=== PATIENT | female | born 2000 | race Caucasian/White ===

== ENCOUNTER 2019-05-16 20:47 | Emergency (ER) | payer BC ==
[~2019-05-16] VITALS: Ht 162.6 cm; Wt 63.5 kg
[~2019-05-16 20:47] MED LIST: AZIT200SU; RXPROCODSY
[2019-05-16] MEDS ORDERED: DULO60 PO (21:27)
== END 2019-05-16 21:28 | disposition home or self-care (01) ==
LOC: ER 20:47
DX: N92.0 Excessive and frequent menstruation with regular cycle (principal)
CPT/HCPCS: 99283

== ENCOUNTER 2019-12-06 20:18 | Emergency (ER) | payer BC ==
[~2019-12-06] VITALS: Ht 162.6 cm; Wt 68.0 kg
[~2019-12-06 20:18] MED LIST changes: +DULO60 PO
[2019-12-06 21:35] LABS: BASOPHILS ABSOLUTE AUTO 0.06 K/mm3 (0.00-0.23); BASOPHILS PERCENT AUTO 1 % (0-2); EOSINOPHILS ABSOLUTE AUTO 0.06 K/mm3 (0.00-0.68); EOSINOPHILS PERCENT AUTO 1 % (0-6); Hematocrit 41.6 % (33.0-51.0); Hemoglobin 14.2 g/dL (11.5-16.0); IMMATURE GRAN ABSOLUTE AUTO 0.02 K/mm3 (0.00-0.10); IMMATURE GRAN PERCENT AUTO 0 % (0-1); LYMPHOCYTES ABSOLUTE AUTO 1.41 K/mm3 (0.84-5.20); LYMPHOCYTES PERCENT AUTO 13 % (21-46); MONOCYTES ABSOLUTE AUTO 0.56 K/mm3 (0.16-1.47); MONOCYTES PERCENT AUTO 5 % (4-13); Mean Corpuscular HGB 30.9 pg (26.0-34.0); Mean Corpuscular HGB Conc 34.1 g/dL (31.5-36.5); Mean Corpuscular Volume 91 fL (80-100); Mean Platelet Volume 10.2 fL (9.1-12.4); NEUTROPHILS ABSOLUTE AUTO 8.85 K/mm3 (1.96-9.15); NEUTROPHILS PERCENT AUTO 81 % (41-73); Platelet Count 308 K/mm3 (150-400); RDW Coefficient Variation 12.2 % (11.7-14.2); RDW Standard Deviation 40.3 fL (35.1-46.3); Red Blood Cell Count 4.59 M/mm3 (3.80-5.20); White Blood Cell Count 10.96 K/mm3 (4.00-11.30)
[2019-12-06 21:39] LABS: Source, Urine Clean Catch
[2019-12-06 21:48] LABS: Appearance, Urine Clear (Clear); Bilirubin, Urine Neg (Neg); Blood, Urine 1+ (Neg); Color, Urine Amber (P-Yellow); Glucose Qualitative, Urine Neg (Neg); Ketones, Urine 1+ (Neg); Leukocyte Esterase, Urine 1+ (Neg); Nitrite, Urine Neg (Neg); Protein, Urine 1+ (Neg); Specific Gravity, Urine 1.025 (1.003-1.022); Urobilinogen, Urine NORM (Normal)
[2019-12-06 21:52] LABS: Alanine Aminotransfer (ALT/SGP 19 U/L (12-78); Albumin, Blood 3.6 g/dL (3.4-5.0); Albumin/Globulin Ratio 0.9 (0.8-1.8); Alk Phos 91 U/L (50-136); Anion Gap 9 mmol/L (6-16); Aspartate Aminotrans (AST/SGOT 20 U/L (12-37); Bilirubin, Total 0.4 mg/dL (0.1-1.0); Blood Urea Nitrogen 10 mg/dL (8-24); Bun/Creatinine Ratio 13.6 (12.0-20.0); CO2, Blood 22 mmol/L (21-32); Calcium, Blood 8.8 mg/dL (8.5-10.1); Chloride, Blood 106 mmol/L (98-108); Creatinine, Blood 0.74 mg/dL (0.40-1.00); Globulin, Blood 4.2 g/dL (2.2-4.0); Glomerular Filtration Rate >60 (60-); Glucose, Blood 93 mg/dL (70-99); Potassium, Blood 3.5 mmol/L (3.5-5.5); Sodium, Blood 137 mmol/L (136-145); Total Protein, Blood 7.8 g/dL (6.4-8.2)
[2019-12-06 21:58] LABS: Bacteria Many /hpf; Mucus Light (0-Heavy); Red Blood Cells, Urine 0-2 /hpf (0-2); Squamous Epithelial Cells Few /hpf (Few)
[2019-12-07] MEDS ORDERED: ONDA4ODT MM (01:10)
== END 2019-12-07 01:26 | disposition home or self-care (01) ==
LOC: ER 20:18
PROVIDERS: Physician Assistant
DX: N20.0 Calculus of kidney (principal); K52.9 Noninfective gastroenteritis and colitis, unspecified; F41.9 Anxiety disorder, unspecified; F32.9 Major depressive disorder, single episode, unspecified
CPT/HCPCS: 36415; 74176; 76705; 80053; 81001; 81025; 83690; 85025; 87086; 96361; 96374; 99284-25; A9270; A9270-GY; J2405; J7030

== ENCOUNTER 2020-05-02 16:28 | Emergency (ER) | payer OTHER, BC ==
[~2020-05-02] VITALS: Ht 162.6 cm; Wt 68.0 kg
[~2020-05-02 16:28] MED LIST changes: +ONDA4ODT MM
[2020-05-02] MEDS ORDERED: DULOXETINE HCL60 M1 PO (16:36)
[2020-05-02] MEDS ORDERED: TRAM50 PO (16:36)
[2020-05-02] MEDS ORDERED: HYDR1TAB94 PO (18:20)
[2020-05-02] MEDS ORDERED: IBU800 MG PO (18:20)
== END 2020-05-02 18:43 | disposition home or self-care (01) ==
LOC: ER 16:28
DX: S09.90XA Unspecified injury of head, initial encounter (principal); S70.01XA Contusion of right hip, initial encounter; S93.401A Sprain of unspecified ligament of right ankle, initial encounter; V56.6XXA Passenger in pick-up truck or van injured in collision with other nonmotor vehicle in traffic accident, initial encounter; Y92.410 Unspecified street and highway as the place of occurrence of the external cause
CPT/HCPCS: 70450; 73502; 73610; 96374; 99285-25; A9270; A9270-GY; J3010

== ENCOUNTER → 2020-07-31 | Outpatient (CLI) | payer BC ==
[~2020-07-31] MED LIST changes: +DULOXETINE HCL60 M1 PO; +HYDR1TAB94 PO; +IBU800 MG PO; +TRAM50 PO
[2020-07-31 10:30] LABS: BASOPHILS ABSOLUTE AUTO 0.06 K/mm3 (0.00-0.23); BASOPHILS PERCENT AUTO 1 % (0-2); EOSINOPHILS ABSOLUTE AUTO 0.08 K/mm3 (0.00-0.68); EOSINOPHILS PERCENT AUTO 2 % (0-6); Hematocrit 41.5 % (33.0-51.0); Hemoglobin 13.8 g/dL (11.5-16.0); IMMATURE GRAN ABSOLUTE AUTO 0.01 K/mm3 (0.00-0.10); IMMATURE GRAN PERCENT AUTO 0 % (0-1); LYMPHOCYTES ABSOLUTE AUTO 1.72 K/mm3 (0.84-5.20); LYMPHOCYTES PERCENT AUTO 35 % (21-46); MONOCYTES ABSOLUTE AUTO 0.33 K/mm3 (0.16-1.47); MONOCYTES PERCENT AUTO 7 % (4-13); Mean Corpuscular HGB 31.4 pg (26.0-34.0); Mean Corpuscular HGB Conc 33.3 g/dL (31.5-36.5); Mean Corpuscular Volume 94 fL (80-100); Mean Platelet Volume 10.4 fL (9.1-12.4); NEUTROPHILS ABSOLUTE AUTO 2.79 K/mm3 (1.96-9.15); NEUTROPHILS PERCENT AUTO 56 % (41-73); Platelet Count 314 K/mm3 (150-400); RDW Coefficient Variation 11.8 % (11.7-14.2); RDW Standard Deviation 41.2 fL (35.1-46.3); White Blood Cell Count 4.99 K/mm3 (4.00-11.30)
[2020-07-31 10:55] LABS: Alanine Aminotransfer (ALT/SGP 25 U/L (12-78); Albumin, Blood 3.9 g/dL (3.4-5.0); Albumin/Globulin Ratio 1.1 (0.8-1.8); Alk Phos 99 U/L (50-136); Anion Gap 6 mmol/L (6-16); Aspartate Aminotrans (AST/SGOT 22 U/L (12-37); Bilirubin, Total 0.4 mg/dL (0.1-1.0); Blood Urea Nitrogen 7 mg/dL (8-24); Bun/Creatinine Ratio 9.6 (12.0-20.0); CO2, Blood 27 mmol/L (21-32); Calcium, Blood 9.4 mg/dL (8.5-10.1); Chloride, Blood 110 mmol/L (98-108); Creatinine, Blood 0.73 mg/dL (0.40-1.00); Globulin, Blood 3.7 g/dL (2.2-4.0); Glomerular Filtration Rate >60 (60-); Glucose, Blood 80 mg/dL (70-99); Potassium, Blood 3.6 mmol/L (3.5-5.5); Sodium, Blood 143 mmol/L (136-145); Total Protein, Blood 7.6 g/dL (6.4-8.2)
== END | disposition home or self-care (01) ==
LOC: LAB SHORT 10:23 → LAB 10:23
PROVIDERS: Nurse Practitioner Family
DX: R10.9 Unspecified abdominal pain (principal)
CPT/HCPCS: 80053; 83690; 85025

== ENCOUNTER → 2020-08-05 | Outpatient (CLI) | payer BC ==
[2020-08-07 17:43] LABS: CORONAVIRUS (COVID19) CSH-NRL Negative (Negative)
== END | disposition home or self-care (01) ==
LOC: LAB SHORT 12:52 → OLS 12:52 → LAB 12:52
PROVIDERS: Physician Assistant
DX: R05 Cough (principal); Z20.828 Contact with and (suspected) exposure to other viral communicable diseases
CPT/HCPCS: U0003

== ENCOUNTER → 2024-11-11 | Outpatient (CLI) | payer BC, OTHER | LOC: LAB SHORT 13:43 → LAB 13:43 | DX: O09.93 Supervision of high risk pregnancy, unspecified, third trimester (principal) | CPT/HCPCS: 87081; 87150 ==

== ENCOUNTER 2024-12-09 15:00 | Inpatient (IN) | payer BC, OTHER ==
[2024-12-09] VITALS (9 sets, daily range): BP systolic 139–159; BP diastolic 80–96
[~2024-12-09] VITALS: Ht 162.6 cm; Wt 98.0 kg
[2024-12-09 17:10] LABS: BASOPHILS ABSOLUTE AUTO 0.09 K/mm3 (0.00-0.23); BASOPHILS PERCENT AUTO 1 % (0-2); EOSINOPHILS PERCENT AUTO 1 % (0-6); Hematocrit 35.3 % (33.0-51.0); Hemoglobin 12.2 g/dL (11.5-16.0); IMMATURE GRAN ABSOLUTE AUTO 0.12 K/mm3 (0.00-0.10); IMMATURE GRAN PERCENT AUTO 1 % (0-1); LYMPHOCYTES ABSOLUTE AUTO 3.42 K/mm3 (0.84-5.20); LYMPHOCYTES PERCENT AUTO 19 % (21-46); MONOCYTES ABSOLUTE AUTO 1.13 K/mm3 (0.16-1.47); MONOCYTES PERCENT AUTO 6 % (4-13); Mean Corpuscular HGB 30.9 pg (26.0-34.0); Mean Corpuscular HGB Conc 34.6 g/dL (31.5-36.5); Mean Corpuscular Volume 89 fL (80-100); Mean Platelet Volume 11.9 fL (9.1-12.4); NEUTROPHILS ABSOLUTE AUTO 12.95 K/mm3 (1.96-9.15); NEUTROPHILS PERCENT AUTO 73 % (41-73); Platelet Count 314 K/mm3 (150-400); RDW Coefficient Variation 13.6 % (11.7-14.2); RDW Standard Deviation 44.3 fL (35.1-46.3); Red Blood Cell Count 3.95 M/mm3 (3.80-5.20); White Blood Cell Count 17.81 K/mm3 (4.00-11.30)
[2024-12-09 17:43] LABS: Albumin, Blood 2.3 g/dL (3.4-5.0); Albumin/Globulin Ratio 0.5 (0.8-1.8); Bilirubin, Total 0.2 mg/dL (0.1-1.0); Bun/Creatinine Ratio 10.5 (12.0-20.0); Calcium, Blood 9.4 mg/dL (8.5-10.1); Creatinine, Blood 0.57 mg/dL (0.40-1.00); Globulin, Blood 4.2 g/dL (2.2-4.0); Potassium, Blood 3.5 mmol/L (3.5-5.5); Total Protein, Blood 6.5 g/dL (6.4-8.2)
[2024-12-09 18:57] LABS: Protein, Urine Random 15.6 mg/dL (0.0-11.9)
[2024-12-09 19:03] LABS: Protein/Creat Ratio, Ur Random 0.1
[2024-12-09] MEDS ORDERED: ASPI81CH PO (19:17)
[2024-12-09] MEDS ORDERED: Cyclobenzaprine5 MG PO (19:18)
[2024-12-09] MEDS ORDERED: Prozac20 MG PO (19:18)
[2024-12-09] MEDS ORDERED: Zolpidem Tartrate 10 MG Tab PO PRN (20:05)
[2024-12-09] MEDS ORDERED: Oxytocin 10 Unit / ML Vial IM PRN (20:10)
[2024-12-09] MEDS ORDERED: Lactated Ringer's 1,000 ML IV PRN (20:10)
[2024-12-09] MEDS ORDERED: Misoprostol 200 MCG Tab PR PRN (20:10)
[2024-12-09] MEDS ORDERED: Ondansetron HCl 2 MG / ML 2ML Vial IV PRN (20:10)
[2024-12-09] MEDS ORDERED: Tranexamic Acid 100 ML IV SCH (20:10)
[2024-12-09] MEDS ORDERED: Acetaminophen 500 MG Tab PO PRN (20:10)
[2024-12-09] MEDS ORDERED: Misoprostol 200 MCG Tab BC PRN (20:10)
[2024-12-09] MEDS ORDERED: Methylergonovine Maleate 0.2MG / ML 1ML Amp IM PRN (20:10)
[2024-12-09] MEDS ORDERED: OXYTOCIN/RINGER'S LACTATE 500 ML IV PRN (20:10)
[2024-12-09] MEDS ORDERED: Carboprost Tromethamine 250 MCG/ML 1ML Amp IM PRN (20:10)
[2024-12-09] MEDS ORDERED: Calcium Carbonate 500 MG Tab Chew PO PRN (20:15)
[2024-12-09] MEDS ORDERED: FentaNYL Citrate 50 MCG/ML 2 ML Injection IV PRN (22:10)
[2024-12-10] VITALS (30 sets, daily range): BP systolic 95–190; BP diastolic 53–157
[2024-12-10] MEDS ORDERED: Labetalol HCL 100 MG TAB PO SCH (04:45)
[2024-12-10] MEDS ORDERED: OXYTOCIN/RINGER'S LACTATE 500 ML IV SCH ×2 (05:00→15:45)
[2024-12-10] MEDS ORDERED: Lactated Ringer's 1,000 ML IV SCH ×3 (05:00→15:45)
[2024-12-10] MEDS ORDERED: CeFAZolin Sodium 2,000 MG in NS 100 ML IV SCH (11:15)
[2024-12-10] MEDS ORDERED: Azithromycin 500 MG in NS 250 ML IV SCH (11:15)
[2024-12-10] MEDS ORDERED: Citric Acid/Sodium Citrate 30 ML BTL PO ONE (11:35)
[2024-12-10] MEDS ORDERED: Metoclopramide HCl 5MG / ML 2ML Vial IV ONE (11:35)
[2024-12-10] MEDS ORDERED: Citric Acid/Sodium Citrate 30 ML BTL ONE (14:02)
[2024-12-10] MEDS ORDERED: FentaNYL Citrate 50 MCG/ML 2 ML Injection ONE (14:19)
[2024-12-10] MEDS ORDERED: Oxytocin 10 Unit / ML Vial ONE ×2 (14:19→15:29)
[2024-12-10 15:17] LABS: PCO2 Cord - Arterial 68 mmHg (40-50); PO2 Cord - Arterial < 14 mmHg (16-20); pH Cord - Arterial 7.18 (7.28-7.35)
[2024-12-10 15:18] LABS: PCO2 Cord - Venous 48.6 mmHg (40-50); PO2 Cord - Venous 19.8 mmHg (28-32); pH Umbilical Cord - Venous 7.33 (7.26-7.35)
--- NOTE | 2024-12-10 15:18 | NUR ---
12/10/24 1518 Eben Le CORD GIVEN TO RT, CORD BLOOD GIVEN TO L&D RN
[2024-12-10] MEDS ORDERED: Ondansetron HCl 2 MG / ML 2ML Vial ONE (15:33)
[2024-12-10] MEDS ORDERED: Phenylephrine HCl 100 MCG/ML-NS 10MLSYR (1MG/10ML) ONE (15:33)
[2024-12-10] MEDS ORDERED: Dexamethasone Sod Phos 10 MG/ML 1ML VIAL ONE (15:33)
[2024-12-10] MEDS ORDERED: Promethazine HCl 25 MG Tab PO PRN (15:40)
[2024-12-10] MEDS ORDERED: Misoprostol 200 MCG Tab PR PRN (15:40)
[2024-12-10] MEDS ORDERED: Simethicone 80 MG Chew PO PRN (15:40)
[2024-12-10] MEDS ORDERED: Metoclopramide HCl 10 MG Tab PO PRN (15:40)
[2024-12-10] MEDS ORDERED: Ondansetron HCl 2 MG / ML 2ML Vial IV PRN ×2 (15:40→15:55)
[2024-12-10] MEDS ORDERED: Lanolin Cream TOP PRN (15:40)
[2024-12-10] MEDS ORDERED: DiphenhydrAMINE HCL 25 MG Cap PO PRN (15:45)
[2024-12-10] MEDS ORDERED: Carboprost Tromethamine 250 MCG/ML 1ML Amp IM PRN (15:45)
[2024-12-10] MEDS ORDERED: Magnesium Hydroxide Conc 10 ML UDC PO PRN (15:45)
[2024-12-10] MEDS ORDERED: Acetaminophen 500 MG Tab PO PRN (15:50)
[2024-12-10] MEDS ORDERED: OxyCODONE HCL 5 MG TAB PO PRN ×2 (15:50)
[2024-12-10] MEDS ORDERED: HYDROmorphone HCl/Pf 1MG SYR IV PRN ×3 (15:55→22:00)
[2024-12-10] MEDS ORDERED: FentaNYL Citrate 50 MCG/ML 2 ML Injection IV PRN ×2 (15:55→16:00)
[2024-12-10] MEDS ORDERED: Atropine Sulfate 0.1 MG/ML 10ML SYR IV PRN (15:55)
[2024-12-10] MEDS ORDERED: Ketorolac Tromethamine 30mg Vial IV SCH (16:00)
--- NOTE | 2024-12-10 17:48 | NUR ---
1748 BP NOT ACCURATE, PT MOVING NB AND TALKING DURING BP ASSESSMENT.
[2024-12-10] MEDS ORDERED: Docusate Sodium 100 MG Cap PO SCH (21:00)
[2024-12-11] VITALS (8 sets, daily range): BP systolic 113–128; BP diastolic 64–79
[2024-12-11 06:07] LABS: BASOPHILS ABSOLUTE AUTO 0.05 K/mm3 (0.00-0.23); BASOPHILS PERCENT AUTO 0 % (0-2); EOSINOPHILS PERCENT AUTO 1 % (0-6); Hematocrit 31.9 % (33.0-51.0); IMMATURE GRAN ABSOLUTE AUTO 0.06 K/mm3 (0.00-0.10); IMMATURE GRAN PERCENT AUTO 0 % (0-1); LYMPHOCYTES PERCENT AUTO 21 % (21-46); MONOCYTES ABSOLUTE AUTO 1.19 K/mm3 (0.16-1.47); MONOCYTES PERCENT AUTO 7 % (4-13); Mean Corpuscular HGB 31.4 pg (26.0-34.0); Mean Corpuscular HGB Conc 34.5 g/dL (31.5-36.5); Mean Corpuscular Volume 91 fL (80-100); Mean Platelet Volume 11.3 fL (9.1-12.4); NEUTROPHILS ABSOLUTE AUTO 11.67 K/mm3 (1.96-9.15); NEUTROPHILS PERCENT AUTO 71 % (41-73); Platelet Count 251 K/mm3 (150-400); RDW Coefficient Variation 13.8 % (11.7-14.2); White Blood Cell Count 16.47 K/mm3 (4.00-11.30)
[2024-12-11] MEDS ORDERED: Prenatal Vit/FE Fumarate/FA 1 Tab PO SCH (09:00)
--- NOTE | 2024-12-11 10:54 | NUR ---
METAPOHORE TAKEN OFF, INCISION LOOKS WELL APPROXIMATED, C.D.I, NO SWELLING OR REDNESS NOTED. STERI STRIPS ARE NOT SATURATED AND LOOK GOOD/WELL ADHEARED.
[2024-12-11] MEDS ORDERED: Ibuprofen 400 MG Tab PO SCH (12:00)
[2024-12-12 01:02] VITALS: BP 124/68
[2024-12-12 04:14] VITALS: BP 136/77
[2024-12-12 04:18] VITALS: BP 130/78
[2024-12-12 07:46] VITALS: BP 120/67
--- NOTE | 2024-12-12 08:43 | NUR ---
PT IN BED SLEEPING WIHT , EDUCATED THAT NO COSLEEPING IS ALLOWED. PT VERBALIZES UNDERSTANDING
[2024-12-12 12:32] VITALS: BP 137/72
== END 2024-12-12 13:20 | disposition home or self-care (01) | DRG 787 ==
LOC: BC 15:00 → OBS 15:00 → BC 17:51
PROVIDERS: Obstetrics & Gynecology; ADMIT Advanced Practice Midwife
PROC: 10D00Z1 Extraction of Products of Conception, Low, Open Approach (ICD-10-PCS; principal; 2024-12-09)
PROC: 0U7 Female Reproductive System, Dilation (ICD-10-PCS; 2024-12-09)
PROC: 4A033R1 Measurement of Arterial Saturation, Peripheral, Percutaneous Approach (ICD-10-PCS; 2024-12-10)
DX: O13.4 Gestational [pregnancy-induced] hypertension without significant proteinuria, complicating childbirth (principal); O99.354 Diseases of the nervous system complicating childbirth; O48.0 Post-term pregnancy; G43.909 Migraine, unspecified, not intractable, without status migrainosus; O32.1XX0 Maternal care for breech presentation, not applicable or unspecified; Z3A.40 40 weeks gestation of pregnancy; O99.52 Diseases of the respiratory system complicating childbirth; J45.909 Unspecified asthma, uncomplicated; O99.344 Other mental disorders complicating childbirth; F41.8 Other specified anxiety disorders; Z37.0 Single live birth; O99.214 Obesity complicating childbirth; Z79.899 Other long term (current) drug therapy; Z98.890 Other specified postprocedural states; R00.0 Tachycardia, unspecified; O99.893 Other specified diseases and conditions complicating puerperium; O32.0XX1 Maternal care for unstable lie, fetus 1; O90.81 Anemia of the puerperium
CPT/HCPCS: 36415; 59025; 59200; 80053; 81003; 82570; 82803; 84156; 85025; 86850; 86900; 86901; 86923; 93005; 93010; A9270; J0456; J0690; J1100; J1171; J1885; J2371; J2405; J2590; J3010; J7050; J7120